=== PATIENT | male | born 1935 | race Caucasian/White ===

== ENCOUNTER 2017-11-26 10:12 | Emergency (ER) | payer OTHER ==
[2017-11-26 10:31] VITALS: RESP 16
--- NOTE | 2017-11-26 12:09 | EDPHY ---
H & P Stated Complaint: [facility]I w/LOC last ;cognitive changes;sent from for eval Time Seen by Provider: 11/26/17 12:08 - Personal History Current Tetanus Diphtheria and Acellular Pertussis (TDAP): Yes - Medical/Surgical History Other PMH: HTN - Social History Smoking Status: Former smoker Constitutional: Initial Vital Signs Temperature (C) 36.8 C 11/26/17 10:27 Heart Rate 60 11/26/17 10:27 Respiratory Rate 16 11/26/17 10:27 Blood Pressure 142/86 H 11/26/17 10:27 O2 Sat (%) 98 11/26/17 10:27 O2 Delivery Mode Room Air Allergies/Adverse Reactions: No Known Allergies Allergy (Verified 11/26/17 10:27) Home Medications: Medication Instructions Recorded Hydrochlorothiazide [Microzide] 12.5 mg PO DAILY 10/07/09 Medical Decision Making ED Course/Re-evaluation: CHIEF COMPLAINT: Fall HISTORY OF PRESENT ILLNESS: 82-year-old gentleman who is been positively diagnosed with influenza. He was feeling very weak and woozy the other evening when he got up to use the restroom and he fell down a couple of stairs. This happened 3 or 4 days ago. He hit his head and he believes he might have even been unconscious for a minute or 2. His noticed that over the last day or 2 he has not been as sharp mentally as she would expect. He has had a little bit of memory deficit. He denies any neurologic problems other than some mild memory deficit. He is feeling somewhat better from the influenza but still thinks he has it to some extent since he still feeling a bit weak and run down and has been sleeping more than usual. He claims he is very healthy and does not take any blood thinners. REVIEW OF SYSTEMS: A 10 point review of systems was performed and is negative with the exception of the elements mentioned in the history of present illness. PHYSICAL EXAM: HR, BP, O2 Sat, RR. Temp noted General Appearance: Alert, well hydrated, appropriate, and non-toxic appearing. Head: Atraumatic without scalp tenderness or obvious injury Eyes: Pupils equal, round, reactive to light and accommodation, EOMI, no trauma , no injection. Ears: Clear bilaterally, no perforation, normal landmarks Nose: Atraumatic, no rhinorrhea, clear. Throat: There is no erythema or exudates, no lesions, normal tonsils, mucus membranes moist. Neck: Supple, 2+ carotid upstroke, nontender, no lymphadenopathy. Respiratory: No retractions, no distress, no wheezes, and no accessory muscle use. Lungs are clear to auscultation bilaterally. Cardiovascular: Regular rate and rhythm, no murmurs, rubs, or gallops. Bilateral carotid, radial, dorsalis pedis, and posterior tibial pulses intact. Good capillary refill all extremities. Gastrointestinal: Abdomen is soft, nontender, non-distended, no masses, no rebound, no guarding, no peritoneal signs. Musculoskeletal: Normal active ROM of all extremities, atraumatic. Neurological: Alert, appropriate, and interactive. The patient has normal DTRs and non-focal cranial nerves, motor, sensory, and cerebellar exam. Skin: Some well-healed abrasions on the right side of the forehead right side of the face. Otherwise, No rashes, good turgor, no nodules on palpation. Past medical history: Patient denies Past surgical history: Patient denies Family history: Noncontributory Social history: , retired, does not abuse tobacco drugs or alcohol, lives in his own home DIAGNOSTICS/PROCEDURES/CRITICAL CARE TIME: Study: CT of the Indication: Results: CT scan of the body parts was obtained. The results of the study are no acute process. The study was read by the radiologist, Dr. Real Navarro . I viewed the images myself on the PACS system. DIFFERENTIAL DIAGNOSIS: For memory issues includes but is not limited to: Subdural hematoma, epidural hematoma, intraparenchymal bleeding, concussion, postconcussive syndrome MEDICAL DECISION MAKING: This patient has completely normal neurologic exam. He is several days out from his head injury but I will perform a noncontrast head CT since his is concerned about some memory loss and so is the patient. This patient has no evidence of any acute intracranial findings on his CT scan according to the close Ramon. He has a postconcussive syndrome. I will give him information. And follow-up. Departure - Departure Disposition: Home, Routine, Self-Care Clinical Impression: Post concussive syndrome Condition: Good Instructions: Concussion (ED) Referrals: Karen Be MD [Primary Care Provider] - As per Instructions
[2017-11-26 13:09] VITALS: BP 128/76; PULSE 81; TEMP 98.6; O2SAT 97
== END 2017-11-26 13:37 | disposition home or self-care (01) ==
DX: G44.309 Post-traumatic headache, unspecified, not intractable (principal); F07.81 Postconcussional syndrome; I10 Essential (primary) hypertension; Z87.891 Personal history of nicotine dependence